=== PATIENT | female | born 1960 | race Caucasian/White ===

== ENCOUNTER → 2017-12-07 | Outpatient (CLI) | payer OTHER | LOC: COL.RAD 10:08 → EDBD 12-09 10:30 → COL.RAD 12-09 10:30 | DX: R10.11 Right upper quadrant pain (principal); R11.0 Nausea; R19.7 Diarrhea, unspecified; R10.2 Pelvic and perineal pain; Z90.710 Acquired absence of both cervix and uterus ==

== ENCOUNTER → 2017-12-21 | Outpatient (CLI) | payer OTHER | LOC: COL.RAD 07:57 | DX: R10.11 Right upper quadrant pain (principal); R10.13 Epigastric pain; R11.0 Nausea | CPT/HCPCS: A9537; J2805 ==

== ENCOUNTER 2018-01-26 10:30 | Day surgery (SDC) | payer OTHER ==
[2018-01-26] VITALS (9 sets, daily range): BP systolic 132–160; BP diastolic 62–78; PULSE 50–68; TEMP 97.5–97.8
[~2018-01-26] VITALS: Ht 185.4 cm; Wt 101.6 kg
[2018-01-26] MEDS ORDERED: MULTIPLE VITAMI1 CAP PO (11:08)
[2018-01-26] MEDS ORDERED: EXCEDRIN1 TAB PO (11:08)
[2018-01-26] MEDS ORDERED: NORCO 325 MG-51 TAB PO (13:41)
[2018-01-26] MEDS ORDERED: COLACE 100100 MG/CAP PO (13:41)
[2018-01-26] MEDS ORDERED: MOTRIN 600600 MG/TAB PO (13:41)
== END 2018-01-26 17:10 | disposition home or self-care (01) ==
LOC: SDCO 10:30
DX: K81.1 Chronic cholecystitis (principal); M19.90 Unspecified osteoarthritis, unspecified site; Z90.712 Acquired absence of cervix with remaining uterus; Z82.3 Family history of stroke; Z83.3 Family history of diabetes mellitus; Z80.0 Family history of malignant neoplasm of digestive organs
CPT/HCPCS: J1100; J1885; J2405; J2704; J2710; J3010; J7120; Q9967

== ENCOUNTER → 2018-05-16 | Outpatient (CLI) | payer OTHER ==
[~2018-05-16] MED LIST: COLACE 100100 MG/CAP PO; EXCEDRIN1 TAB PO; MOTRIN 600600 MG/TAB PO; MULTIPLE VITAMI1 CAP PO; NORCO 325 MG-51 TAB PO
== END ==
LOC: MC.RAD 09:23
DX: Z12.31 Encounter for screening mammogram for malignant neoplasm of breast (principal)

== ENCOUNTER → 2018-05-18 | Outpatient (CLI) | payer OTHER | LOC: MC.RAD 10:20 | DX: N60.02 Solitary cyst of left breast (principal) ==

== ENCOUNTER → 2019-06-06 | Outpatient (CLI) | payer OTHER | LOC: MC.RAD 08:49 | DX: Z12.31 Encounter for screening mammogram for malignant neoplasm of breast (principal) ==

== ENCOUNTER → 2021-06-18 | Outpatient (CLI) | payer OTHER | LOC: MC.RAD 10:30 | DX: Z12.31 Encounter for screening mammogram for malignant neoplasm of breast (principal) ==

== ENCOUNTER → 2021-06-25 | Outpatient (CLI) | payer OTHER | LOC: MC.RAD 13:56 | DX: N63.21 Unspecified lump in the left breast, upper outer quadrant (principal); R92.0 Mammographic microcalcification found on diagnostic imaging of breast; N64.89 Other specified disorders of breast ==

== ENCOUNTER → 2021-12-28 | Outpatient (CLI) | payer BC | LOC: MC.RAD 10:42 | DX: N63.20 Unspecified lump in the left breast, unspecified quadrant (principal) ==

== ENCOUNTER → 2022-06-21 | Outpatient (CLI) | payer BC | LOC: MC.RAD 09:53 | DX: Z12.31 Encounter for screening mammogram for malignant neoplasm of breast (principal) ==

== ENCOUNTER → 2024-08-09 | Outpatient (CLI) | payer BC | LOC: MC.RAD 07:56 | DX: Z12.31 Encounter for screening mammogram for malignant neoplasm of breast (principal); N64.89 Other specified disorders of breast ==